=== PATIENT | male | born 1965 | race Caucasian/White ===

== ENCOUNTER 2017-03-12 09:45 | Emergency (ER) | payer OTHER ==
[~2017-03-12] VITALS: Ht 170.2 cm; Wt 100.0 kg
[2017-03-12 09:58] VITALS: Ht 170.2 cm; Wt 100.0 kg
[2017-03-12] MEDS ORDERED: LIDOCAINE 1% (MDV) 20 ML INJ SC ONE (11:00)
[2017-03-12] MEDS ORDERED: CEPH-443 PO (11:49)
[2017-03-12] MEDS ORDERED: SULF1TAB31 PO (11:49)
[2017-03-12] MEDS ORDERED: IBUP400T22 PO (11:49)
--- NOTE | 2017-03-12 12:43 | ERD ---
ER Documentation Chief Complaint Date/Time DATE: 03/12/17 TIME: 12:30 Chief Complaint ABSCESS @ THE BACK HPI 51-year-old male patient with no significant past medical history presents the ED complaining of an abscess mid back region that has been going on for a few months but has gotten bigger in the last 2 days. States that he tried to drain it himself with a needle and knife. States that he cleaned the knife really well. He denies any fever, chills, nausea, vomiting, chest pain, shortness of breath, back pain, weakness, numbness or tingling. ROS All systems reviewed and are negative except as per history of present illness. Medications Home Meds Active Scripts Ibuprofen* (Motrin*) 400 Mg Tab, 400 MG PO Q6, #30 TAB Prov:ALFONSO TOMPKINS PA-C 03/12/17 Cephalexin* (Keflex*) 500 Mg Capsule, 500 MG PO QID for 7 Days, CAP Prov:ALFONSO TOMPKINS PA-C 03/12/17 Sulfamethoxazole/Trimethoprim* (Bactrim Ds* Tablet) 1 Each Tablet, 1 TAB PO BID for 7 Days, #14 TAB Prov:ALFONSO TOMPKINS PA-C 03/12/17 Allergies Allergies: Coded Allergies: No Known Allergy (Unverified , 03/15/17) PMhx/Soc Medical and Surgical Hx: pt denies Medical Hx, pt denies Surgical Hx Hx Alcohol Use: No Physical Exam Vitals Vital Signs Date Time Temp Pulse Resp B/P Pulse Ox O2 Delivery O2 Flow Rate FiO2 03/12/17 09:58 98.1 70 19 155/86 98 Physical Exam Const: [id number], well-nourished. In no acute distress. Head: Atraumatic, normocephalic Eyes: Normal Conjunctiva without injection. No purulent discharge. ENT: Normal external ear, nose. Moist oropharynx without tonsillar exudates. Non -erythematous pharynx. Uvula midline. No drooling. No trismus. Neck: No cervical midline tenderness. Full range of motion. No meningismus. No cervical lymphadenopathy. No JVD. Resp: Clear to auscultation bilaterally. No wheezing, rhonchi, rales, or crackles. No accessory muscle use. No retractions. Cardio: Regular rate and rhythm. No murmurs, rubs or gallops. Abd: Soft, nontender, non distended. Normal bowel sounds. No palpable masses. No rebound tenderness. No guarding. Negative McBurney's point. Negative psoas sign. Negative obturator sign. Skin: No petechiae or rashes Back: No midline tenderness. No CVA tenderness. 2 x 2 centimeter fluctuant abscess noted on the mid left back region with slight surrounding erythema and induration. Ext: No cyanosis, or edema. Neur: Awake and alert. Normal gait. Normal coordination. Psych: Normal Mood and Affect Results 24 hrs Current Medications Medications (Trade) Dose Ordered Sig/Leandro Route PRN Reason Start Time Stop Time Status Last Admin Dose Admin Lidocaine (Xylocaine 1% (Mdv) 20 ml) 20 ml ONCE ONCE SC 03/12/17 11:00 03/12/17 11:01 DC Procedures/MDM 51-year-old male patient with no significant past medical history presents the ED complaining of abscess on his back. Patient is afebrile and nontoxic- appearing. Patient has normal vital signs. Patient gave consent to perform incision and drainage. 11 blade scalpel used to make a small incision. Abscess Incision and Drainage with irrigation by me: Location: Mid left back Anesthesia: [3 cc Local 1% Lidocaine] Technique: [Irrigated. Disrupted loculations w/ instrumentation ] Packing: [None] Complications: [Neurovascularly intact post procedure] Copious purulent cheesy discharge drained from the abscess. Patient likely has an infected sebaceous cyst. Low suspicion for deep space infection, epidural abscess, sepsis or other emergent conditions. Keflex and Bactrim was prescribed to patient. Instructed patient to return to the ED sooner for any worsening symptoms. Follow up with primary care physician or return to the ED in 2 days for a wound check. Patient's questions were answered. Patient understood and agreed with discharge plan. Departure Diagnosis: Primary Impression: Infected sebaceous cyst Condition: Stable Patient Instructions: Sebaceous Cyst, Infected (I And D) Referrals: COMMUNITY CLINICS YOU HAVE RECEIVED A MEDICAL SCREENING EXAM AND THE RESULTS INDICATE THAT YOU DO NOT HAVE A CONDITION THAT REQUIRES URGENT TREATMENT IN THE EMERGENCY DEPARTMENT. FURTHER EVALUATION AND TREATMENT OF YOUR CONDITION CAN WAIT UNTIL YOU ARE SEEN IN YOUR DOCTORS OFFICE WITHIN THE NEXT 1-2 DAYS. IT IS YOUR RESPONSIBILITY TO MAKE AN APPOINTMENT FOR FOLOW-UP CARE. IF YOU HAVE A PRIMARY DOCTOR --you should call your primary doctor and schedule an appointment IF YOU DO NOT HAVE A PRIMARY DOCTOR YOU CAN CALL OUR PHYSICIAN REFERRAL HOTLINE AT IF YOU CAN NOT AFFORD TO SEE A PHYSICIAN YOU CAN CHOSE FROM THE FOLLOWING [facility] [address] [facility] [address] [facility]. [facility] [address] [facility] [address] [facility]. [facility] [address] [facility] [facility] [address] [facility] [facility] YOU HAVE RECEIVED A MEDICAL SCREENING EXAM AND THE RESULTS INDICATE THAT YOU DO NOT HAVE A CONDITION THAT REQUIRES URGENT TREATMENT IN THE EMERGENCY DEPARTMENT. FURTHER EVALUATION AND TREATMENT OF YOUR CONDITION CAN WAIT UNTIL YOU ARE SEEN IN YOUR DOCTORS OFFICE WITHIN THE NEXT 1-2 DAYS. IT IS YOUR RESPONSIBILITY TO MAKE AN APPOINTMENT FOR FOLOW-UP CARE. IF YOU HAVE A PRIMARY DOCTOR --you should call your primary doctor and schedule and appointment IF YOU DO NOT HAVE A PRIMARY DOCTOR YOU CAN CALL OUR PHYSICIAN REFERRAL HOTLINE AT . IF YOU CAN NOT AFFORD TO SEE A PHYSICIAN YOU CAN CHOSE FROM THE FOLLOWING [facility]: [facility] [address] [place] [address] [facility] [address] [place] [address] [facility] [address] [place] [address] [facility] URGENT CARE/SPECIALTIES Additional Instructions: WOUND CHECK:CONSULTE A BRANCH MDICO EN 2 macias para trish BRANCH HERIDA. Llame al doctor MAANA y doug brandy KENYA PARA DENTRO DE 2-3 DASH.Dgale a la secretaria que nosotros le instruimos hacer esta kenya.Avise o llame si branch condicin se empeora antes de la kenya. Regresa aqui si peor o no mejor. ALFONSO TOMPKINS PA-C Mar 12, 2017 12:40
== END 2017-03-12 12:15 | disposition home or self-care (01) ==
LOC: FTE 09:45
DX: L72.3 Sebaceous cyst (principal); L08.9 Local infection of the skin and subcutaneous tissue, unspecified
CPT/HCPCS: 10060; Z7610

== ENCOUNTER 2017-03-15 09:53 | Emergency (ER) | payer OTHER ==
[~2017-03-15] VITALS: Ht 170.2 cm; Wt 101.0 kg
[~2017-03-15 09:53] MED LIST: CEPH-443 PO; IBUP400T22 PO; SULF1TAB31 PO
[2017-03-15 09:54] VITALS: Ht 170.2 cm; Wt 101.0 kg
--- NOTE | 2017-03-15 10:11 | ERD ---
ER Documentation Chief Complaint Date/Time DATE: 03/15/17 TIME: 10:08 Chief Complaint wound check on back i&d done 1wk ago HPI This 51-year-old male presents the emergency department today for wound check of an abscess that he had drained a couple of days ago. Patient states that the bump is still there. States he is taking his antibiotics as prescribed. Denies any fevers or chills. ROS All systems reviewed and are negative except as per history of present illness. Medications Home Meds Active Scripts Ibuprofen* (Motrin*) 400 Mg Tab, 400 MG PO Q6, #30 TAB Prov:ALFONSO TOMPKINS PA-C 03/12/17 Cephalexin* (Keflex*) 500 Mg Capsule, 500 MG PO QID for 7 Days, CAP Prov:ALFONSO TOMPKINS PA-C 03/12/17 Sulfamethoxazole/Trimethoprim* (Bactrim Ds* Tablet) 1 Each Tablet, 1 TAB PO BID for 7 Days, #14 TAB Prov:ALFONSO TOMPKINS PA-C 03/12/17 Allergies Allergies: Coded Allergies: No Known Allergy (Unverified , 03/15/17) PMhx/Soc Hx Alcohol Use: No Physical Exam Vitals Vital Signs Date Time Temp Pulse Resp B/P Pulse Ox O2 Delivery O2 Flow Rate FiO2 03/15/17 09:54 97.5 67 18 145/85 99 Physical Exam Const: NAD Head: Atraumatic Eyes: Normal Conjunctiva ENT: Normal External Ears, Nose and Mouth. Neck: Full range of motion..~ No meningismus. Resp: Clear to auscultation bilaterally Cardio: Regular rate and rhythm, no murmurs Abd: Soft, non tender, non distended. Normal bowel sounds Skin: Draining abscess left back with other small areas of small vesicles. Localized induration. Neur: Awake and alert Psych: Normal Mood and Affect Results 24 hrs Current Medications Medications (Trade) Dose Ordered Sig/Leandro Route PRN Reason Start Time Stop Time Status Last Admin Dose Admin Lidocaine (Xylocaine 1% (Mdv) 20 ml) 20 ml ONCE ONCE SC 03/15/17 10:30 03/15/17 10:31 DC Procedures/MDM This is a 57-year-old male presents the emergency department today for wound check of an abscess he had drained a couple of days ago. Upon review of patient 's medical records patient was seen here 3 days ago for what appeared to be an infected sebaceous cyst. He was given Keflex and Bactrim at that time. The wound was not packed at that time upon review of providers documentation. Today on physical exam the area is draining however it appears that the wound is trying to close up and I do feel that the patient would benefit from opening up the wound a little bit further. I explained the risks and benefits of the procedure and the patient agreed to proceed. Patient tolerated the procedure well and there were no complications.Purulent discharge was removed from the patient's abscess as well as part of a sac likely from sebaceous cyst and infected sebaceous cyst. Patient did have a fair amount of scar tissue. This was explained to him. Abscess Incision and Drainage with irrigation by me: Location: Left side midthoracic Anesthesia: 5 cc Technique: [Irrigated. Disrupted loculations w/ instrumentation ] Packing: Iodoform Complications: [Neurovascularly intact post procedure] 48 hour wound check. Scar minimization instructions given. Patient's skin symptoms have stabilized while they have been evaluated in the department and are appropriate for outpatient care and work up. Exam and w/u not consistent w/ sepsis, deep space infection, or foreign body. Patient instructed to continue taking his antibiotics and return for wound check and wound packing removal in 48 hours. Patient understood.Patient indicated that the Motrin is working well for him. Dr. Jones has seen and evaluated the patient is in agreement with plan. Departure Diagnosis: Primary Impression: Abscess Condition: LOLA Peña PA-C Mar 15, 2017 10:11
[2017-03-15] MEDS ORDERED: LIDOCAINE 1% (MDV) 20 ML INJ SC ONE (10:30)
== END 2017-03-15 10:49 | disposition home or self-care (01) ==
LOC: FTE 09:53
DX: L02.212 Cutaneous abscess of back [any part, except buttock and flank] (principal)
CPT/HCPCS: 10060; Z7502

== ENCOUNTER 2017-03-17 18:33 | Emergency (ER) | payer MEDICAID, OTHER ==
[~2017-03-17] VITALS: Ht 167.6 cm; Wt 100.0 kg
[2017-03-17 19:01] VITALS: Ht 167.6 cm; Wt 100.0 kg
--- NOTE | 2017-03-17 20:26 | ERD ---
ER Documentation Chief Complaint Date/Time DATE: 03/17/17 TIME: 20:23 Chief Complaint wound check back area HPI 51-year-old now presents here in emergency department for reevaluation of the wound in the back, patient had an infected sebaceous cyst that was drained. Patient has been taking antibiotics as prescribed. Patient states that he is feeling much better, pain is improved. Patient's pain at occasionally, 4/10 scale, is worse upon touching the area. Patient denies any discharge coming from the area. Patient denies any fever or chills. ROS All systems reviewed and are negative except as per history of present illness. Medications Home Meds Active Scripts Ibuprofen* (Motrin*) 400 Mg Tab, 400 MG PO Q6, #30 TAB Prov:ALFONSO TOMPKINS PA-C 03/12/17 Cephalexin* (Keflex*) 500 Mg Capsule, 500 MG PO QID for 7 Days, CAP Prov:ALFONSO TOMPKINS PA-C 03/12/17 Sulfamethoxazole/Trimethoprim* (Bactrim Ds* Tablet) 1 Each Tablet, 1 TAB PO BID for 7 Days, #14 TAB Prov:ALFONSO TOPMKINS PA-C 03/12/17 Allergies Allergies: Coded Allergies: No Known Allergy (Unverified , 03/15/17) PMhx/Soc History of Surgery: Yes (appendectomy) Anesthesia Reaction: No Hx Neurological Disorder: No Hx Respiratory Disorders: No Hx Cardiac Disorders: No Hx Psychiatric Problems: No Hx Miscellaneous Medical Probl: No Hx Alcohol Use: No Hx Substance Use: No Hx Tobacco Use: No FmHx Family History: No coronary disease, No diabetes, No other Physical Exam Vitals Vital Signs Date Time Temp Pulse Resp B/P Pulse Ox O2 Delivery O2 Flow Rate FiO2 03/17/17 19:01 97.6 65 20 159/84 98 Physical Exam GENERAL: The patient is well developed and appropriate for usual state of health, in no apparent distress. CHEST: Clear to auscultation bilaterally. There are no rales, wheezes or rhonchi. HEART: Regular rate and rhythm. No murmurs, clicks, rubs or gallops. No S3 or S4. ABDOMEN: Soft, nontender and nondistended. Good bowel sounds. No rebound or guarding. No gross peritonitis. No gross organomegaly or masses. No Andrade sign or McBurney point tenderness. BACK: No midline or flank tenderness. EXTREMITIES: Equal pulses bilaterally. There is no peripheral clubbing, cyanosis or edema. No focal swelling or erythema. Full range of motion. Grossly neurovascularly intact. NEURO: Alert and oriented. Cranial nerves 2-12 intact. Motor strength in all 4 extremities with 5/5 strength. Sensation grossly intact. Normal speech and gait. SKIN: noted healing infected sebaceous cyst,nontender on palpation. There is no apparent rash or petechia. The skin is warm and dry. HEMATOLOGIC AND LYMPHATIC: There is no evidence of excessive bruising or lymphedema. No gross cervical, axillary, or inguinal lymphadenopathy. Procedures/MDM Medical decision making: Patient has a healing infected sebaceous cyst, no discharge coming from the area, the skin was approximated using Steri-Strips and was covered with a dressing afterwards. The wound is healing well. Patient is advised to continue taking antibiotics. No symptoms of sepsis. Patient appears well and is hemodynamically stable . Disposition: Home. Stable. Departure Diagnosis: Primary Impression: Encounter for wound re-check Condition: Stable Patient Instructions: Wound Care Additional Instructions: continue antibiotics BLAYNE MICHAEL NP Mar 17, 2017 20:26
== END 2017-03-17 20:30 | disposition home or self-care (01) ==
LOC: FTE 18:33
DX: Z48.01 Encounter for change or removal of surgical wound dressing (principal)
CPT/HCPCS: 99281

== ENCOUNTER 2017-05-08 10:49 | Emergency (ER) | END 2017-05-08 12:07 | disposition home or self-care (01) | DX: R20.2 Paresthesia of skin (principal) ==